=== PATIENT | female | born 1995 | race Two or more races ===

== ENCOUNTER 2023-03-27 23:49 | Inpatient (IN) | payer OTHER ==
[~2023-03-27] VITALS: Ht 157.5 cm; Wt 75.3 kg
[2023-03-28] MEDS ORDERED: ROBITUSSIN COL237 ML PO (00:42)
[2023-03-28] MEDS ORDERED: FOLIC ACID0.8 M1 PO (00:43)
== END 2023-03-31 10:30 | disposition home or self-care (01) | DRG 833 ==
LOC: LDR 23:49 → OB/GYN 03-29 10:45
PROVIDERS: ADMIT Obstetrics & Gynecology; ATTEND Obstetrics & Gynecology
PROC: 4A1HXCZ Monitoring of Products of Conception, Cardiac Rate, External Approach (ICD-10-PCS; principal; 2023-03-27)
DX: O60.03 Preterm labor without delivery, third trimester (principal); Z3A.35 35 weeks gestation of pregnancy; Z20.822 Contact with and (suspected) exposure to COVID-19

== ENCOUNTER 2023-04-21 15:15 | Inpatient (IN) | payer OTHER ==
[~2023-04-21] VITALS: Ht 157.5 cm; Wt 76.2 kg
[~2023-04-21 15:15] MED LIST: FOLIC ACID0.8 M1 PO; ROBITUSSIN COL237 ML PO
[2023-04-22] MEDS ORDERED: PRENATAL + DHA1 EAC1 (15:21)
== END 2023-04-24 17:09 | disposition home or self-care (01) | DRG 807 ==
LOC: LDR 04-22 00:06 → OB/GYN 04-22 00:06
PROVIDERS: ADMIT Obstetrics & Gynecology; ATTEND Obstetrics & Gynecology
PROC: 10E0XZZ Delivery of Products of Conception, External Approach (ICD-10-PCS; principal; 2023-04-22)
PROC: 4A1HXCZ Monitoring of Products of Conception, Cardiac Rate, External Approach (ICD-10-PCS; 2023-04-22)
DX: O80 Encounter for full-term uncomplicated delivery (principal); Z37.0 Single live birth; Z3A.38 38 weeks gestation of pregnancy; Z20.822 Contact with and (suspected) exposure to COVID-19